=== PATIENT | male | born 1975 | race Hispanic/Latino ===

== ENCOUNTER 2021-07-30 08:24 | Emergency (ER) | payer SELFPAY ==
--- NOTE | 2021-07-30 09:29 | EDM.PDOC ---
ED HPI GENERAL MEDICAL PROBLEM - General Chief Complaint: Lower Extremity Injury/Pain Stated Complaint: LT KNEE INJURY Time Seen by Provider: 07/30/21 09:16 Source of Information: Reports: Patient History Limitations: Reports: No Limitations - History of Present Illness INITIAL COMMENTS - FREE TEXT/NARRATIVE: 45-year-old male [place] descent presents to the ED for evaluation of left knee pain. 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 Patient was at work yesterday afternoon and was carrying some tools and tripped and fell with direct blow to his left knee. Patient cannot put any weight on his left leg this morning. He has the left leg bandaged up with a medicated Salonpas bandage over his knee. No previous injury to his knee or surgery. He denies injuring it or any other body parts. Injury occurred approximately 1630 to 1645 hours yesterday afternoon. He did take some Motrin last night for pain relief Onset: Sudden Onset Date: 07/29/21 Onset Time: 16:45 Duration: Hour(s):, Constant, Getting Worse Location: Reports: Lower Extremity, Left (Left knee pain with swelling) Quality: Reports: Ache, Throbbing Severity: Moderate Improves with: Reports: None Worsens with: Reports: Movement Context: Reports: Trauma (Tripped and fell with direct blow to his left knee on concrete surface yesterday p.m.). Denies: Activity (Him to weight-bear), Exercise, Lifting, Sick Contact Associated Symptoms: Reports: No Other Symptoms Treatments MD PSYCHIATRY: Reports: NSAIDS (Motrin.) Left Knee Pain Score (Numeric/FACES): 9 Social & Family History - Living Situation & Occupation Occupation: Employed Review of Systems - Review of Systems Review Of Systems: See Below Constitutional: Reports: No Symptoms Eyes: Reports: No Symptoms Ears: Reports: No Symptoms Nose: Reports: No Symptoms Mouth/Throat: Reports: No Symptoms Respiratory: Reports: No Symptoms Cardiovascular: Reports: No Symptoms GI/Abdominal: Reports: No Symptoms Genitourinary: Reports: No Symptoms Musculoskeletal: Reports: Back Pain (Occasional low back pain) Skin: Reports: No Symptoms Neurological: Reports: No Symptoms Psychiatric: Reports: No Symptoms ED EXAM, GENERAL - Physical Exam Exam: See Below Exam Limited By: Language Barrier (Patient speaks only [place].) General Appearance: Alert, No Apparent Distress, Other (Temperature is 36.7 degrees heart rate 60 and sinus respiratory 16 with O2 sats of 100% room air. BP is 125/87.) Eye Exam: Bilateral Eye: Normal Inspection, PERRL Throat/Mouth: Normal Inspection, Normal Lips, Normal Oropharynx Head: Atraumatic, Normocephalic Neck: Normal Inspection, Supple, Non-Tender, Full Range of Motion. No: Lymphadenopathy (L), Lymphadenopathy (R) Respiratory/Chest: No Respiratory Distress, Lungs Clear, Normal Breath Sounds, No Accessory Muscle Use Cardiovascular: Normal Peripheral Pulses, Regular Rate, Rhythm, No Edema, No Gallop, No Murmur Peripheral Pulses: 3+: Carotid (L), Carotid (R), Posterior Tibial (L), Posterior Tibial (R), Dorsalis Pedis (L), Dorsalis Pedis (R) GI/Abdominal: Normal Bowel Sounds, Soft, Non-Tender, No Organomegaly, No Distention, Other (Scaphoid abdomen) Back Exam: Normal Inspection, Full Range of Motion. No: CVA Tenderness (L), CVA Tenderness (R) Extremities: Other (Examination of his left lower extremity shows marked swelling about the knee. No true knee effusion identified. Appears that he has an underlying fracture to the patella. Quadriceps tendon appears to be intact. He has very limited ability to flex it past 30 degrees or to extend the knee due to p) Neurological: Alert, Oriented, CN II-XII Intact, Normal Cognition Psychiatric: Normal Affect, Normal Mood Skin Exam: Warm, Dry, Intact, Normal Color, No Rash Course - Vital Signs Last Recorded V/S: Last Vital Signs Temp 36.7 C 07/30/21 09:10 Pulse 68 07/30/21 09:10 Resp 16 07/30/21 09:10 BP 125/87 07/30/21 09:10 Pulse Ox 100 07/30/21 09:10 - Orders/Labs/Meds Orders: Active Orders 24 hr Category Date Time Status Durable Medical Equipment for Discharge [DME for Oth 07/30/21 10:11 Ordered Discharge] [COMM] Stat - Radiology Interpretation Free Text/Narrative:: 45-year-old male of [place] descent presents to the ED for evaluation of left knee pain. Reports getting tripped up and falling with direct blow to his left anterior knee shortly before getting off work last evening at 1645 hrs. He has it wrapped up with Salonpas and Curlex. Once remove the bandage there is no open wounds or abrasions. The knee itself is markedly swollen however over the patella. No true effusion of the knee joint identified. Plan three-view x-ray of the left knee to be done. - Re-Assessments/Exams Free Text/Narrative Re-Assessment/Exam: 07/30/21 10:13 x-rays revealed a nondisplaced fracture of the lateral inferior portion of the left patella. He will be fitted with a long knee immobilizer and be started on crutches. He may return to the workplace of alternative work duties are available to him as he would have to be sitting since he cannot really lift or carry anything. I will have him follow-up with Dr. Lopez orthopedic surgeon in clinic in 10 to 14 days time. He wishes just to use Motr in for pain relief. He is 5 foot 6 and will be fitted with crutches. Departure - Departure Time of Disposition: 10:39 Disposition: Home, Self-Care 01 Condition: Fair Clinical Impression: Fracture of patella Fracture of patella, left, closed Qualifiers: Encounter type: initial encounter Fracture morphology: comminuted Fracture alignment: nondisplaced Qualified Code(s): S82.045A - Nondisplaced comminuted fracture of left patella, initial encounter for closed fracture - Discharge Information *PRESCRIPTION DRUG MONITORING PROGRAM REVIEWED*: Not Applicable *COPY OF PRESCRIPTION DRUG MONITORING REPORT IN PATIENT CADENCE: Not Applicable Instructions: Crutch Use, Adult, [id number], How to Use a Knee Immobilizer, [id number] Referrals: PCP,None [Primary Care Provider] - Forms: ED Department Discharge, ED Return to Work/School Form Additional Instructions: Evaluation in the emergency room today in regards to trip and fall in the workplace yesterday with direct blow to the left knee on concrete surface. This morning the left knee is markedly swollen and unable to weight-bear due to pain. Examination confirms swelling over the kneecap with no true joint effusion. X- rays of the left knee reveal a nondisplaced fracture of the left patella. You were placed in a long knee immobilizer which should stay on at all times except to shower. Should be nonweightbearing for the at least the next 14 days. A follow-up appointment with Dr. Lopez-- orthopedic surgeon will be arranged who will monitor your progress and make sure the fracture heals adequately and determine when you will be able to return to full work duties. I will have his office call you with an appointment time ice pack to the knee for 1/2-hour out of every 4 hours today and after this may use heat to the area. Motrin 600 mg every 6 hours as needed to relieve pain and inflammation. Swelling will go down over the next 3 to 5 days. Sepsis Event Note (ED) - Focused Exam Vital Signs: Vital Signs Temp Pulse Resp BP Pulse Ox 07/30/21 09:10 36.7 C 68 16 125/87 100 - My Orders Last 24 Hours: My Active Orders 07/30/21 10:11 Durable Medical Equipment for Discharge [DME for Discharge] [COMM] Stat - Assessment/Plan Last 24 Hours: My Active Orders 07/30/21 10:11 Durable Medical Equipment for Discharge [DME for Discharge] [COMM] Stat
--- NOTE | 2021-07-30 09:49 | CR ---
Left knee: AP, lateral and sunrise patellar views of the left knee were obtained. Comparison: No prior knee study is available. Nondisplaced fracture is seen within the lateral patella. Joint effusion is seen. Medial and lateral joint compartments are maintained in height. No additional fracture or other abnormality is appreciated. Impression: 1. Nondisplaced lateral patellar fracture. 2. Joint effusion. Diagnostic code #3
== END 2021-07-30 11:03 | disposition home or self-care (01) ==
LOC: JD.ED 08:24
DX: S82.045A Nondisplaced comminuted fracture of left patella, initial encounter for closed fracture (principal); W01.0XXA Fall on same level from slipping, tripping and stumbling without subsequent striking against object, initial encounter; Y92.89 Other specified places as the place of occurrence of the external cause; Y99.0 Civilian activity done for income or pay
CPT/HCPCS: 73562-26-LT; 73562-LT; 99283